=== PATIENT | female | born 1935 | race Two or more races ===

== ENCOUNTER 2016-11-27 15:23 | Observation (INO) | payer MEDICARE ==
[~2016-11-27] VITALS: Ht 154.9 cm; Wt 65.8 kg
[2016-11-27 15:24] VITALS: BP 106/54
[2016-11-27 15:55] LABS: BASOPHILS % (AUTO) 0.9 % (0.0-2.0); EOSINOPHILS % (AUTO) 2.6 % (0.0-3.0); LYMPHOCYTES % (AUTO) 34.7 % (20.0-45.0); MEAN CORPUSCULAR HEMOGLOBIN 31.8 PG (27.0-31.0); MEAN CORPUSCULAR HGB CONC 34.7 G/DL (32.0-36.0); MEAN CORPUSCULAR VOLUME 92 FL (80-99); MONOCYTES % (AUTO) 6.8 % (1.0-10.0); PLATELET COUNT 181 K/UL (150-450); RED BLOOD COUNT 4.48 M/UL (4.20-5.40); RED CELL DISTRIBUTION WIDTH 11.7 % (11.6-14.8); WHITE BLOOD COUNT 5.6 K/UL (4.8-10.8)
[2016-11-27 16:06] LABS: PROTHROMBIN TIME 9.9 SEC (9.30-11.50)
--- NOTE | 2016-11-27 16:10 | Emergency Room Report ---
History of Present Illness General Chief Complaint: Palpitations Source: Patient, EMS Present Illness HPI 81-year-old female presents ED complaining chest pain palpitations. States the symptoms started around 12:00 today while at rest. The chest pressure and palpitations. Patient went to PMD office. EKG performed showed A. fib with RVR. Some ST depressions also noted. 911 was called and patient brought here. Upon arrival patient denies any chest pain. States she feels palpitations. Denies any shortness of breath. Patient has history of A. fib. Patient was given aspirin at PMD office. No other aggravating or relieving factors. Denies any other associated symptoms Allergies: Coded Allergies: No Known Allergies (Unverified , 11/27/16) Patient History Past Medical History: HTN, AFib, ulcer Past Surgical History: none Pertinent Family History: none Social History: Denies: alcohol use, drug use, smoking Last Menstrual Period: na Now: No Immunizations: UTD Reviewed Nursing Documentation: PMH: Agreed, PSxH: Agreed Nursing Documentation-PMH Past Medical History: No History, Except For Hx Cardiac Problems: Yes - afib, mitral stenosis, high cholesterol Hx Gastrointestinal Problems: Yes - ulcers Review of Systems All Other Systems: negative except mentioned in HPI Physical Exam Vital Signs Date Time Temp Pulse Resp B/P Pulse Ox O2 Delivery O2 Flow Rate FiO2 11/27/16 15:15 97.7 125 18 106/54 98 Room Air Sp02 EP Interpretation: reviewed, normal General Appearance: no apparent distress, alert, GCS 15, non-toxic Head: normocephalic, atraumatic Eyes: bilateral eye PERRL, bilateral eye normal inspection ENT: hearing grossly normal, normal pharynx, no angioedema, normal voice Neck: full range of motion, supple/symm/no masses Respiratory: chest non-tender, lungs clear, normal breath sounds, speaking full sentences Cardiovascular #1: regular rate, rhythm, no edema Cardiovascular #2: 2+ carotid (R), 2+ carotid (L), 2+ radial (R), 2+ radial (L) , 2+ dorsalis pedis (R), 2+ dorsalis pedis (L) Gastrointestinal: normal bowel sounds, non tender, soft, non-distended, no guarding, no rebound Rectal: deferred Genitourinary: normal inspection, no CVA tenderness Musculoskeletal: back normal, gait/station normal, normal range of motion, non- tender Neurologic: alert, oriented x3, responsive, motor strength/tone normal, sensory intact, speech normal Psychiatric: judgement/insight normal, memory normal, mood/affect normal, no suicidal/homicidal ideation Reflexes: 3+ bicep (R), 3+ bicep (L), 3+ tricep (R), 3+ tricep (L), 3+ knee (R) , 3+ knee (L) Skin: normal color, no rash, warm/dry, well hydrated Lymphatic: no adenopathy Medical Decision Making Diagnostic Impression: Primary Impression: Afib Qualified Codes: I48.91 - Unspecified atrial fibrillation Additional Impression: ACS (acute coronary syndrome) ER Course Hospital Course 81-year-old female presents ED complaining of palpitations at doctor's office. EKG showed A. fib with RVR with some ST depressions. Patient denies any chest pain at this time Differential diagnoses include: AL/unstable angina, afib with RVR, hyperkalemia , ACS Clinical course Patient placed on stretcher. on monitor and storage bin tender. After initial history and physical I ordered labs, EKG, chest x-ray labs reviewed- no leukocytosis, hemoglobin/hematocrit stable, electrolytes okay , troponins negative, BNP > 1500 Chest x-ray- some cardiomegaly EKG at doctor's office shows A. fib with RVR, some concern of ST depressions in the lateral leads. EKG performed here shows A. fib but not in RVR, the ST depressions that were on previous EKG have since resolved Patient given aspirin at doctor's office. Discussed case with PMD Dr. Roblero and he requested admission to Dr Ponce Case discussed with Dr. Ponce and he agreed to accept the patient to his service for further care and support I. I feel this is a highly complex case requiring extensive working including EKG/Rhythm strip, Xray/CT/US, Blood/urine lab work, repeat exams while in ED, and administration of strong opiates/narcotics for pain control, admission to hospital or close patient follow up. Diagnosis - afib, ACS admitted to telemetry in serious condition Labs Test 11/27/16 15:29 11/27/16 18:02 White Blood Count 5.6 K/UL (4.8-10.8) Red Blood Count 4.48 M/UL (4.20-5.40) Hemoglobin 14.2 G/DL (12.0-16.0) Hematocrit 41.0 % (37.0-47.0) Mean Corpuscular Volume 92 FL (80-99) Mean Corpuscular Hemoglobin 31.8 PG (27.0-31.0) Mean Corpuscular Hemoglobin Concent 34.7 G/DL (32.0-36.0) Red Cell Distribution Width 11.7 % (11.6-14.8) Platelet Count 181 K/UL (150-450) Mean Platelet Volume 7.0 FL (6.5-10.1) Neutrophils (%) (Auto) 55.0 % (45.0-75.0) Lymphocytes (%) (Auto) 34.7 % (20.0-45.0) Monocytes (%) (Auto) 6.8 % (1.0-10.0) Eosinophils (%) (Auto) 2.6 % (0.0-3.0) Basophils (%) (Auto) 0.9 % (0.0-2.0) Prothrombin Time 9.9 SEC (9.30-11.50) Prothromb Time International Ratio 1.0 (0.9-1.1) Activated Partial Thromboplast Time 26 SEC (23-33) Sodium Level 142 mEQ/L (135-145) Potassium Level 4.3 mEQ/L (3.4-4.9) Chloride Level 102 mEQ/L (98-107) Carbon Dioxide Level 28 mEQ/L (20-30) Anion Gap 12 (5-15) Blood Urea Nitrogen 16 mg/dL (7-23) Creatinine 0.8 mg/dL (0.5-0.9) Estimat Glomerular Filtration Rate mL/min (>60) Glucose Level 102 mg/dL (74-106) Calcium Level 9.5 mg/dL (8.6-10.2) Total Bilirubin 0.3 mg/dL (0.0-1.2) Aspartate Amino Transf (AST/SGOT) 16 U/L (5-40) Alanine Aminotransferase (ALT/SGPT) 12 U/L (3-33) Alkaline Phosphatase 62 U/L (35-104) Total Creatine Kinase 48 U/L (26-140) Creatine Kinase MB 2.5 ng/mL (< 3.8) Creatine Kinase MB Relative Index 5.2 Troponin I < 0.30 ng/mL (<=0.30) Pro-B-Type Natriuretic Peptide 1502 pg/mL (0-450) Total Protein 6.4 g/dL (6.6-8.7) Albumin 4.0 g/dL (3.5-5.2) Globulin 2.4 g/dL Albumin/Globulin Ratio 1.6 (1.0-2.7) Urine Color Pale yellow Urine Appearance Clear Urine pH 7 (4.5-8.0) Urine Specific [place] 1.005 (1.005-1.035) Urine Protein Negative (NEGATIVE) Urine Glucose (UA) Negative (NEGATIVE) Urine Ketones Negative (NEGATIVE) Urine Occult Blood Negative (NEGATIVE) Urine Nitrite Negative (NEGATIVE) Urine Bilirubin Negative (NEGATIVE) Urine Urobilinogen Normal MG/DL (0.0-1.0) Urine Leukocyte Esterase Negative (NEGATIVE) EKG Diagnostic Results Rate: normal Rhythm: other - afib with RVR ST Segments: no acute changes ASA given to the pt in ED: No - given by PMD Rhythm Strip Diag. Results EP Interpretation: yes Rhythm: no PVC's, no ectopy Chest X-Ray Diagnostic Results EP Interpretation: No Findings: no consolidation, no effusion, no pneumothorax, no acute cardiopulmonary disease Number of Views: 1 Last Vital Signs Date Time Temp Pulse Resp B/P Pulse Ox O2 Delivery O2 Flow Rate FiO2 11/27/16 15:15 97.7 125 18 106/54 98 Room Air Status: improved Disposition: ADMITTED INPATIENT Condition: Serious ARLIN ALANIZ M.D. Nov 27, 2016 16:10
[2016-11-27] MEDS ORDERED: METOPROLOL SUCC25 MG ORAL (16:12)
[2016-11-27 16:18] LABS: TROPONIN I < 0.30 ng/mL (<=0.30)
[2016-11-27 16:20] LABS: ALANINE AMINOTRANSFERASE 12 U/L (3-33); ALBUMIN/GLOBULIN RATIO 1.6 (1.0-2.7); ANION GAP 12 (5-15); ASPARTATE AMINO TRANSFERASE 16 U/L (5-40); CALCIUM 9.5 mg/dL (8.6-10.2); CARBON DIOXIDE 28 mEQ/L (20-30); CHLORIDE 102 mEQ/L (98-107); CREATININE 0.8 mg/dL (0.5-0.9); HEMOLYSIS 12; POTASSIUM 4.3 mEQ/L (3.4-4.9); SODIUM 142 mEQ/L (135-145); TOTAL PROTEIN 6.4 g/dL (6.6-8.7)
[2016-11-27 16:31] LABS: CKMB 2.5 ng/mL (< 3.8)
--- NOTE | 2016-11-27 16:51 | Diagnostic Imaging Report ---
Indication: Chest pain Technique: One view of the chest Comparison: none Findings: Lungs and pleural spaces are clear. Heart size is normal. Impression: No acute process
[2016-11-27 18:37] LABS: APPEARANCE,URINE CLEAR; KETONES,URINE NEGATIVE (NEGATIVE); LEUKOCYTE ESTERASE ,URINE NEGATIVE (NEGATIVE); NITRITE,URINE NEGATIVE (NEGATIVE); PH,URINE 7 (4.5-8.0); PROTEIN,URINE NEGATIVE (NEGATIVE); UROBILINOGEN,URINE NORMAL MG/DL (0.0-1.0)
--- NOTE | 2016-11-27 19:07 | Cardiology Progress Note ---
Assessment/Plan Assessment/Plan paf chest jaus wpain neg pet perfusion 08/2016 midl MS pud serial enzyme ekg if neg home tomorrow if recurrent afib will need anticoagulation with coumadin heaprin in light of MS to fu with her primary data capture specialist dr nguyen [id number] Objective Last 24 Hour Vital Signs Date Time Temp Pulse Resp B/P Pulse Ox O2 Delivery O2 Flow Rate FiO2 11/27/16 15:24 97.7 81 18 106/54 98 Room Air 11/27/16 15:15 97.7 125 18 106/54 98 Room Air Laboratory Tests Test 11/27/16 15:29 11/27/16 18:02 White Blood Count 5.6 K/UL (4.8-10.8) Red Blood Count 4.48 M/UL (4.20-5.40) Hemoglobin 14.2 G/DL (12.0-16.0) Hematocrit 41.0 % (37.0-47.0) Mean Corpuscular Volume 92 FL (80-99) Mean Corpuscular Hemoglobin 31.8 PG (27.0-31.0) H Mean Corpuscular Hemoglobin Concent 34.7 G/DL (32.0-36.0) Red Cell Distribution Width 11.7 % (11.6-14.8) Platelet Count 181 K/UL (150-450) Mean Platelet Volume 7.0 FL (6.5-10.1) Neutrophils (%) (Auto) 55.0 % (45.0-75.0) Lymphocytes (%) (Auto) 34.7 % (20.0-45.0) Monocytes (%) (Auto) 6.8 % (1.0-10.0) Eosinophils (%) (Auto) 2.6 % (0.0-3.0) Basophils (%) (Auto) 0.9 % (0.0-2.0) Prothrombin Time 9.9 SEC (9.30-11.50) Prothromb Time International Ratio 1.0 (0.9-1.1) Activated Partial Thromboplast Time 26 SEC (23-33) Sodium Level 142 mEQ/L (135-145) Potassium Level 4.3 mEQ/L (3.4-4.9) Chloride Level 102 mEQ/L (98-107) Carbon Dioxide Level 28 mEQ/L (20-30) Anion Gap 12 (5-15) Blood Urea Nitrogen 16 mg/dL (7-23) Creatinine 0.8 mg/dL (0.5-0.9) Estimat Glomerular Filtration Rate mL/min (>60) Glucose Level 102 mg/dL (74-106) Calcium Level 9.5 mg/dL (8.6-10.2) Total Bilirubin 0.3 mg/dL (0.0-1.2) Aspartate Amino Transf (AST/SGOT) 16 U/L (5-40) Alanine Aminotransferase (ALT/SGPT) 12 U/L (3-33) Alkaline Phosphatase 62 U/L (35-104) Total Creatine Kinase 48 U/L (26-140) Creatine Kinase MB 2.5 ng/mL (< 3.8) Creatine Kinase MB Relative Index 5.2 Troponin I < 0.30 ng/mL (<=0.30) Pro-B-Type Natriuretic Peptide 1502 pg/mL (0-450) H Total Protein 6.4 g/dL (6.6-8.7) L Albumin 4.0 g/dL (3.5-5.2) Globulin 2.4 g/dL Albumin/Globulin Ratio 1.6 (1.0-2.7) Urine Color Pale yellow Urine Appearance Clear Urine pH 7 (4.5-8.0) Urine Specific [place] 1.005 (1.005-1.035) Urine Protein Negative (NEGATIVE) Urine Glucose (UA) Negative (NEGATIVE) Urine Ketones Negative (NEGATIVE) Urine Occult Blood Negative (NEGATIVE) Urine Nitrite Negative (NEGATIVE) Urine Bilirubin Negative (NEGATIVE) Urine Urobilinogen Normal MG/DL (0.0-1.0) Urine Leukocyte Esterase Negative (NEGATIVE) MYRA MAGALLON Nov 27, 2016 19:07
[2016-11-27] MEDS ORDERED: Milk of Magnesia 30ml Ud ORAL PRN (19:15)
[2016-11-27] MEDS ORDERED: Mylanta II UD 30ml ORAL PRN (19:15)
[2016-11-27 20:00] VITALS: BP 141/77
[2016-11-27] MEDS ORDERED: Aspirin Baby 81mg ORAL ONE (20:00)
[2016-11-27 21:09] LABS: TROPONIN I < 0.30 ng/mL (<=0.30)
[2016-11-27] MEDS: Docusate 100mg cap ORAL SCH (22:19)
[2016-11-28 00:07] VITALS: BP 118/60
[2016-11-28 03:26] LABS: EOSINOPHILS % (AUTO) 3.7 % (0.0-3.0); MEAN CORPUSCULAR HEMOGLOBIN 30.8 PG (27.0-31.0); MEAN CORPUSCULAR VOLUME 91 FL (80-99); MEAN PLATELET VOLUME 6.6 FL (6.5-10.1); MONOCYTES % (AUTO) 9.1 % (1.0-10.0); NEUTROPHILS % (AUTO) 40.2 % (45.0-75.0); PLATELET COUNT 150 K/UL (150-450); RED BLOOD COUNT 3.89 M/UL (4.20-5.40); RED CELL DISTRIBUTION WIDTH 11.6 % (11.6-14.8); WHITE BLOOD COUNT 4.3 K/UL (4.8-10.8)
[2016-11-28 03:39] LABS: ANION GAP 10 (5-15); CALCIUM 8.8 mg/dL (8.6-10.2); CARBON DIOXIDE 25 mEQ/L (20-30); CHLORIDE 106 mEQ/L (98-107); CREATININE 0.7 mg/dL (0.5-0.9); HEMOLYSIS 1; POTASSIUM 4.4 mEQ/L (3.4-4.9); SODIUM 141 mEQ/L (135-145)
[2016-11-28 03:48] LABS: TROPONIN I < 0.30 ng/mL (<=0.30)
[2016-11-28 04:04] VITALS: BP 114/74
[2016-11-28 08:00] VITALS: BP 125/73
[2016-11-28 09:00] VITALS: BP 114/74
[2016-11-28 09:08] LABS: TROPONIN I < 0.30 ng/mL (<=0.30)
[2016-11-28] MEDS: Docusate 100mg cap ORAL SCH (09:15)
--- NOTE | 2016-12-03 12:42 | Cardiology Report ---
APPROVED REPORT EKG Measurement Heart [id number] Sinus bradycardia with 1st degree AV block Possible Inferior infarct, age undetermined Anterolateral infarct, age undetermined Abnormal ECG
--- NOTE | 2016-12-04 14:51 | Cardiology Report ---
APPROVED REPORT EKG Measurement Heart [id number] Atrial fibrillation Left anterior fascicular block Moderate voltage criteria for LVH, may be normal variant Prolonged QT Abnormal ECG
--- NOTE | 2016-12-19 16:38 | Consultation ---
DATE OF CONSULTATION: 11/27/2016 CARDIOLOGY CONSULTATION CONSULTING PHYSICIAN: Daniel Ponce M.D. REFERRING PHYSICIAN: Hardy Roblero M.D. REASON FOR REFERRAL: Chest pain. HISTORY OF PRESENT ILLNESS: This is an 81-year-old female who has really no significant issues, who has been diagnosed with recently some mitral stenosis and she is followed by Dr. Roblero. Over the years, she has indicated that she has had episodes of palpitations, pain in her jaw, ringing and hot sensation in the ears, blurred vision, and some generalized weakness that lasts normally a few seconds. She has had these recurrently over a number of years and has presented to Dr. Roblero's office because of these symptoms. She had an EKG, which showed significant amount of ST-segment depression more than usual; therefore, paramedics were summoned. The patient was taken to the emergency room of [facility] and has been admitted to the hospital for this. On arrival here, she was completely chest pain free and her heart rate was better controlled, though she was in atrial fibrillation in Dr. Roblero's office. The patient is now feeling fine. There is no pain, pressure, tightness, or heaviness. There is no PND or orthopnea. No palpitations at the present time. She indicates that approximately two to three times a week, she gets this, but only for a few seconds to a few minutes, and these symptoms would resolve, this time it was more involved. PAST MEDICAL HISTORY: Positive for hyperlipidemia. She has been diagnosed recently with mitral stenosis of mild degree with mitral valve area of 1.9. She does have a history of peptic ulcer disease and arthritis. She denies any history of heart attack, although somebody told her she may have had. No cancer. No stroke. No hepatitis or tuberculosis. No asthma or emphysema. She does have a history of peptic ulcer disease and gastroesophageal reflux. No kidney problems, liver problems, thyroid problems, anemia, arthritis, or narrowing of any of the vessels that she is aware of. ALLERGIES: She is not allergic to any medications. SOCIAL HISTORY: She does not smoke at the present time. She previously used to drink alcoholic beverages. No drug use. She lives at home. REVIEW OF SYSTEMS: Gastrointestinal: She has had a history of bloody stools. Genitourinary: Negative. Pulmonary: Negative. Constitutional: Negative. Neurologic: She has numbness and tingling sensation in her feet at times. MEDICATIONS AT HOME: Metoprolol and red yeast rice. PHYSICAL EXAMINATION: GENERAL: An elderly female, in no apparent respiratory distress. HEENT: Unremarkable. NECK: Supple. No jugular venous distention. No abdominojugular reflux noted. LUNGS: Clear to auscultation and percussion. CARDIAC: S1 is normal. S2 is normal. Regular rate and rhythm. No heaves or thrills noted. ABDOMEN: Soft and nontender. Positive bowel sounds. EXTREMITIES: There is no clubbing, cyanosis, or edema. NEUROLOGIC: She is awake, alert, and responsive, and she moves all four extremities. LABORATORY VALUES: Several EKGs have been reviewed. One EKG from the office of Dr. Roblero's showed significant amount of ST-segment depression in II, III, aVF, V4, V5, and V6. She does have [address]-segment elevation in lead aVR as well. EKG performed by the paramedics showed ST-segment elevation in aVR stil present. The other ones appear to be depressed, but less so. She has had an EKG sent over from office that showed some ST-segment depression in II, III, and aVF as well as V5 and V6 at baseline, in sinus rhythm at that time. She has had perfusion imaging performed shows ejection fraction of 72%. No gross reversible defect on PET perfusion and calculated coronary artery disease risk of less than 10%. Her blood tests, white count of 5.6, hemoglobin 14.2, and platelet count of 181,000. Her sodium is 140, potassium 4.3, chloride 102, bicarbonate 28, BUN 16, creatinine 0.8, and glucose of 102. Liver function tests are normal. Troponin less than 0.03. ProBNP is 1500. Her coagulations, INR of 1.0 and PTT 26. Urinalysis is fairly unremarkable. She did have an x-ray performed in the emergency room that was interpreted by the radiologist as no acute processes. Telemetry shows that she is back in sinus at the present time. ASSESSMENT: 1. Paroxysmal episodes of atrial fibrillation. 2. Chest pains with negative PET perfusion imaging on 09/10/2016. 3. Abnormal resting EKG with T-wave inversions and mild mitral stenosis with valve area of 1.9. PLAN: This patient is being seen in cardiology consultation. She has no signs or symptoms of congestive heart failure at the present time. Her chest pain, first set of cardiac enzymes negative. She will have repeat cardiac enzymes performed tonight and again tomorrow morning, although I suspect that her symptoms are mainly because of atrial fibrillation and not a coronary syndrome. Nevertheless, demand ischemia cannot be entirely excluded. Because of her mitral stenosis, I am not sure that would be an adequate and effective treatment for stroke prevention. I will discuss that with her primary farmer cash grain, Dr. Roblero. Otherwise, if she does not have any more cardiac abnormalities, I suspect she may be able to discharge home with followup with Dr. Roblero. Anticoagulation for her paroxysmal episodes of atrial fibrillation and stroke prevention. However, the episode today lasted less than 12 hours. We will discuss with her primary farmer cash grain Dr. Roblero as far as which anticoagulant if any he prefers. Her beta-blockers will be continued. If her cardiac enzymes are negative, one may consider performing a CT coronary angiography, although calcifications may prevent the accuracy of the test, but may forego cardiac catheterization if normal. Daniel Ponce M.D. DR: SUSY JOB#: [id number] CC:
== END 2016-11-28 12:00 | disposition home or self-care (01) ==
LOC: EDBD 15:23 → EMR 16:45 → INTOOBSV 17:04 → 2E 17:04 → EDBEDREQ 17:45 → 2E 20:24
DX: I48.0 Paroxysmal atrial fibrillation (principal); R07.9 Chest pain, unspecified; I05.0 Rheumatic mitral stenosis; K27.9 Peptic ulcer, site unspecified, unspecified as acute or chronic, without hemorrhage or perforation; E78.5 Hyperlipidemia, unspecified; I10 Essential (primary) hypertension; Z90.49 Acquired absence of other specified parts of digestive tract
CPT/HCPCS: 36415 ×2; 71010; 80048; 80053; 81003; 82550; 82553; 83880; 84443; 84484 ×2; 85025 ×2; 85610; 85730; 93005 ×2; 96374; 96376; 99285; G0378 ×2